=== PATIENT | female | born 1945 | race Caucasian/White ===

== ENCOUNTER → 2017-11-12 | Outpatient (REF) ==
[~2017-11-12] MED LIST: ASPI-1471 PO; BIOT1TAB12 PO; HYDR-2966 PO; LOSA100T67 PO; LOSA50TA72 PO; MULT1TAB64 PO; OMEG-23 PO; PNEU0.5D3 IM
[2017-11-12 09:09] LABS: LDL CHOLESTEROL 24 mg/dl
== END ==
DX: Z02.9 Encounter for administrative examinations, unspecified (principal)

== ENCOUNTER 2018-02-25 01:13 | Day surgery (SDC) | payer MEDICARE, OTHER ==
[2018-02-25] VITALS (7 sets, daily range): BP systolic 122–164; BP diastolic 76–97
[~2018-02-25] VITALS: Ht 172.7 cm; Wt 88.0 kg
[~2018-02-25 01:13] MED LIST changes: +ONDA8TAB94 PO
[2018-02-25] MEDS ORDERED: LIDOCAINE MPF 1% 5 ML VIAL ONE (06:54)
[2018-02-25] MEDS ORDERED: PROPOFOL EMUL(*) 10MG/ML 20 ML 60 ML ONE (06:54)
[2018-02-25] MEDS ORDERED: NORMOSOL R SOLN(*) 1000 ML BAG 1,000 ML IV PRN (08:30)
[2018-02-25] MEDS ORDERED: LIDOCAINE/SOD BICARB 8.4% SYR ID ONE (08:30)
--- NOTE | 2018-02-25 10:07 | Short(Outpt) Discharge Summary ---
Discharge Summary Reason for Hosp/Final Diag: (1) Colon cancer screening Status: Chronic Hospital Course & Plan: Colonoscopy with polypectomy x3 completed without problems. (2) History of colon polyps Status: Chronic Departure Discharge to: Home, Self Care Discharge Instructions Home Meds Active Scripts Losartan Potassium (LOSARTAN POTASSIUM) 50 Mg Tablet, 50 MG PO QDAY for 90 Days , #90 TAB Prov:HARITHA MON MD 01/21/18 Reported Medications Aspirin (ASPIR 81) 81 Mg Tablet.dr, 1 TAB PO QDAY 11/23/15 Multivitamin (MULTI VITAMIN DAILY) 1 Each Tablet, 1 EACH PO 07/29/14 Biotin (BIOTIN) 1 Mg Tablet, 1 TAB PO 07/29/14 Diet: Regular Activity: As Tolerated Special Instructions: Your colonoscopy was completed without problems and your prep was excellent (Good Job!!). I removed 3 small polyps from your colon. My office will call you in the next week and let you know what the polyps are but, in any case, your next colonoscopy should be in 5 years. MEREDITH ARELLANO MD Feb 25, 2018 10:06
== END 2018-02-25 11:05 | disposition home or self-care (01) ==
LOC: OR 01:13
PROVIDERS: ATTEND Surgery
DX: Z12.11 Encounter for screening for malignant neoplasm of colon (principal); D12.0 Benign neoplasm of cecum; K63.5 Polyp of colon
CPT/HCPCS: 00811; 45380; 88305; J2001; J2704

== ENCOUNTER → 2018-11-23 | Outpatient (CLI) | payer MEDICARE, OTHER ==
[~2018-11-23] MED LIST changes: -LOSA100T67 PO; +LOSA100T75 PO; -LOSA50TA72 PO; +LOSA50TA80 PO
--- NOTE | 2018-11-24 10:48 | RADIOLOGY IMAGING REPORT ---
FACILITY: [facility] PATIENT NAME: VERONICA TALLEY : [id number] MR: [id number] V: [id number] EXAM DATE: ORDERING PHYSICIAN: HARITHA MON TECHNOLOGIST: Ivet Castillo PROCEDURE:BILATERAL DIGITAL SCREENING MAMMOGRAM WITH CAD ASSISTED INTERPRETATION & 3D TOMOSYNTHESIS COMPARISON:Prior mammograms 08/19/17, 04/10/16, 01/26/15, 08/25/13, 08/24/12. INDICATIONS:screening FINDINGS: There are scattered areas of fibroglandular density throughout the breasts. The parenchymal pattern has remained stable allowing for difference in mammographic technique & patient positioning. DIAGNOSTIC CATEGORY 1--NEGATIVE. RECOMMENDATIONS: ROUTINE MAMMOGRAM AND CLINICAL EVALUATION. IMPRESSION: BIRADS 1: Negative. No significant abnormality is seen. Dictated by: Brandy Hadley M.D. on 11/24/2018 at 8:24 Transcribed by: HADLEY on 11/24/2018 at 8:39 Approved by: Brandy Hadley M.D. on 11/24/2018 at 10:46 [facility]
== END ==
LOC: MAMO 10-22 14:06
PROVIDERS: ATTEND Family Medicine
DX: Z12.31 Encounter for screening mammogram for malignant neoplasm of breast (principal)
CPT/HCPCS: 77063; 77067

== ENCOUNTER → 2019-01-18 | Outpatient (REF) | DX: Z02.9 Encounter for administrative examinations, unspecified (principal) ==

== ENCOUNTER → 2019-04-06 | Outpatient (CLI) | payer MEDICARE, OTHER ==
--- NOTE | 2019-04-06 10:58 | RADIOLOGY IMAGING REPORT ---
FACILITY: [facility] PATIENT NAME: Orin Geiger : 1945 MR: [id number] V: [id number] EXAM DATE: ORDERING PHYSICIAN: RACHEL CLEMENS TECHNOLOGIST: Location: [facility] [place] Patient: Orin Geiger : 1945 Visit/Account:[id number] Date of Sevice: 04/06/2019 FINGER RIGHT THUMB HISTORY: Right thumb pain and clicking sensation at IP joint Three-view examination of the right thumb. FINDINGS: No obvious acute fracture. There there are 2 bony ossicles seen at the first metacarpal phalangeal [place] int measuring up to 6 mm in size along the volar aspect of the joint. In addition there is a smaller 3.5 mm bony ossicle along the volar aspect of the DIP joint of the thumb. Soft tissues unremarkable. IMPRESSION: 1. Negative right thumb for acute bony pathology. Report Dictated By: Bruce Tripathi MD at 04/06/2019 10:45 AM Report E-Signed By: Bruce Tripathi MD at 04/06/2019 10:50 AM WSN:[id number]
== END ==
LOC: RAD 09:06
PROVIDERS: ATTEND Nurse Practitioner Primary Care
DX: M79.644 Pain in right finger(s) (principal)